=== PATIENT | female | born 1975 | race African-American/Black ===

== ENCOUNTER → 2018-01-20 | Outpatient (CLI) | payer BC ==
[~2018-01-20] MED LIST: 0.9 % SODIUM CHLORIDE 10 ML VIAL ONE; IOHEXOL 300 MG/ML 50 ML VIAL. ONE; LIDOCAINE 1% PF 2 ML VIAL. ONE; methylPREDNISolone ACETATE 80 MG/ML VIAL. ONE
== END | disposition home or self-care (01) ==
LOC: SURG 08:27
PROVIDERS: ATTEND Anesthesiology Pain Medicine
DX: M54.12 Radiculopathy, cervical region (principal); Z72.89 Other problems related to lifestyle; M17.0 Bilateral primary osteoarthritis of knee; M70.20 Olecranon bursitis, unspecified elbow; Z98.890 Other specified postprocedural states
CPT/HCPCS: 62321; J1040; Q9967; 64483